=== PATIENT | male | born 1995 | race Caucasian/White ===

== ENCOUNTER 2018-08-14 00:31 | Outpatient (CLI) | payer BC ==
[2018-08-14 12:25] LABS: #Eosinphils 0.2 thou/uL (0.0-0.7); #Lymphocytes 1.8 thou/uL (1.20-3.40); #Monocytes 0.5 thou/uL (0.11-0.59); #Neutrophils 2.6 thou/uL (1.40-6.50); %Basophils 0.4 % (0.0-1.0); %Eosinophils 4.6 % (0.0-10.0); %Lymphocytes 34.9 % (21.0-51.0); %Monocytes 10.4 % (0.0-10.0); %Neutrophils 49.8 % (42.0-75.0); Hemoglobin 14.4 g/dL (14.0-18.0); Mean Corpuscular HGB CONC 32.6 g/dL (32.0-36.0); Mean Platelet Volume 8.7 fL (7.4-10.4); Platelet Count 202 thou/uL (130-400); RBC Distribution Width 11.7 % (11.5-14.5); Red Blood Cell (RBC) Count 4.51 mill/uL (4.70-6.10); White Blood Cell (WBC) Count 5.2 thou/uL (4.8-10.8)
[2018-08-14 20:23] LABS: Anion Gap 10 mmol/L (10-20); BUN (Urea Nitrogen) 10 mg/dL (8.9-20.6); Calc. Creatinine Clearance 0 mL/min (70-130); Calcium 9.9 mg/dL (7.8-10.44); Carbon Dioxide 28 mmol/L (22-29); Chloride 105 mmol/L (98-107); Estimated GFR-MDRD 87; Glucose 95 mg/dL (70-105); Potassium 4.2 mmol/L (3.5-5.1); Sodium 139 mmol/L (136-145)
== END 2018-08-14 00:32 | disposition home or self-care (01) ==
LOC: LABBT 00:31
PROVIDERS: ATTEND Surgery
DX: Z01.812 Encounter for preprocedural laboratory examination (principal); K40.90 Unilateral inguinal hernia, without obstruction or gangrene, not specified as recurrent
CPT/HCPCS: 80048; 85025

== ENCOUNTER 2018-08-30 10:10 | Day surgery (SDC) | payer OTHER, BC ==
[2018-08-14 11:36] VITALS: BMI 18.7
[2018-08-30] MEDS ORDERED: Fentanyl 250 MCG/5 ML VIAL ONE (10:36)
[2018-08-30] MEDS ORDERED: Lidocaine 2% Jelly 5 ML TUBE ONE (10:37)
[2018-08-30] MEDS ORDERED: Bupivacaine/Epinephrine 0.25% 30 ML VIAL ONE (10:39)
[2018-08-30] MEDS ORDERED: Midazolam HCl 2 mg/2 ml Vial ONE (10:56)
[2018-08-30] MEDS ORDERED: Scopolamine 1.5 mg/72 hour Patch ONE (10:56)
[2018-08-30] MEDS ORDERED: Fentanyl 100 MCG/2 ML VIAL ONE (12:54)
[2018-08-30] MEDS ORDERED: Lidocaine 1% PF 5 ML VIAL ONE (13:34)
[2018-08-30] MEDS ORDERED: Rocuronium Bromide 10 MG/ML (10ML VIAL) ONE (13:34)
[2018-08-30] MEDS ORDERED: Ondansetron PF 4 MG/2 ML Vial ONE (13:34)
[2018-08-30] MEDS ORDERED: PROPOFOL 200 MG/20 ML VIAL ONE (13:34)
[2018-08-30] MEDS ORDERED: Ketorolac Tromethamine 30 MG/ML VIAL ONE (13:34)
[2018-08-30] MEDS ORDERED: Glycopyrrolate 0.2 MG/ML 5 ML SYRINGE ONE (13:34)
[2018-08-30] MEDS ORDERED: Dexamethasone 20 MG/5 ML VIAL ONE (13:34)
[2018-08-30] MEDS ORDERED: HYDROcodone/Acetaminophen 5/325 mg Tablet ONE (14:57)
--- NOTE | 2018-08-30 19:04 | OP ---
DATE OF PROCEDURE: 08/30/2018 PREOPERATIVE DIAGNOSIS: Right inguinal hernia. POSTOPERATIVE DIAGNOSIS: Bilateral inguinal hernias. PROCEDURE PERFORMED: Laparoscopic Da Yazmin bilateral inguinal hernia repairs with mesh, 3DMax large. ANESTHESIA: General. ESTIMATED BLOOD LOSS: Minimal. COMPLICATIONS: None. SPECIMEN: None. FINDINGS: Bilateral inguinal hernias. TECHNIQUE: The patient was taken to the operating room, laid in supine on the operating room table. After general anesthetic was obtained, a Burrows was placed. The abdomen was shaved, prepped, and draped in a sterile fashion. A curved incision was made below the umbilicus. Cautery was dissected down to and score the fascia. Abdominal cavity was entered bluntly using a Analilia clamp. Holding stitch of PDS was placed on each side of the fascia. Dixie trocar was placed. 11-mm trocar was placed. High-flow pneumoperitoneum was obtained. Left and right abdominal 8-mm robotic trocars were placed. All ports were docked to the robot. The patient had been placed in Trendelenburg position. The peritoneum was taken down in the bilateral groins. The preperitoneal spaces were bluntly dissected in the bilateral groins all the way to pubic tubercle medially to the anterior superior iliac crest laterally. Iliopectineal line in shelving edge of inguinal ligament was fully exposed bilateral. The bilateral indirect inguinal hernia sacs were dissected out away from the other cord structures and down against the peritoneum. A 3DMax large mesh was brought into the abdominal cavity and labeled medial aspect of the mesh was placed over pubic tubercles medially. The mesh laid out laterally to cover the femoral, direct, and indirect areas. 2-0 Vicryl was used to sew the mesh to the pubic tubercle medially into the posterior fascia laterally. The peritoneum was reapproximated using running 3-0 Stratafix. All needles were removed and accounted for from the abdomen. All port sites were infiltrated using local anesthetic. All ports were removed under camera visualization. Prep was let down. PDS was used to close the fascial defect below the umbilicus. All incisions were irrigated and closed using 4-0 Monocryl and Dermabond. The patient was then returned to Recovery in stable condition. Instrument counts, needle counts, and lap counts were correct. Job ID: [id number]
== END 2018-08-30 15:48 | disposition home or self-care (01) ==
LOC: SDC 10:10
PROVIDERS: ATTEND Surgery
PROC: 0YUA4JZ Supplement Bilateral Inguinal Region with Synthetic Substitute, Percutaneous Endoscopic Approach (ICD-10-PCS; principal; 2018-08-30)
DX: K40.20 Bilateral inguinal hernia, without obstruction or gangrene, not specified as recurrent (principal); F17.290 Nicotine dependence, other tobacco product, uncomplicated
CPT/HCPCS: C1781; J2250; J3010